=== PATIENT | male | born 1960 | race Caucasian/White ===

== ENCOUNTER 2016-07-13 12:21 | Emergency (ER) | payer OTHER ==
[~2016-07-13] VITALS: Ht 175.3 cm; Wt 81.6 kg
[~2016-07-13 12:21] MED LIST: ALBU8.5H6 IH; DICY20TA3 PO; GABA600T2 PO; LISI10TA2 PO; NAPR550T3 PO; OMEP20TA PO; ONDA8TAB9 PO; PROAIR HFA8.5 GM IH; RANI150C PO; SIMV40TA3 PO; TRAZ50TA15 PO
--- NOTE | 2016-07-13 12:26 | PHYS DOC ---
Past Medical History Past Medical History: High Cholesterol, Hypertension Past Surgical History: Appendectomy, Other Additional Past Surgical Histo: LEFT KNEE SX x2, BICEPT TENDON RUPTURE Alcohol Use: None Drug Use: None Adult General HPI HPI Patient is a 55 year old male presenting to the emergency department via EMS for evaluation of a syncopal episode. Patient was reportedly standing by a desk and then stood up and turned his head and then had a syncopal episode where he passed out for several minutes. Says that his mother called the ambulance. Patient says that he has been having a headache for 2 weeks and he has chronic neck pain years and that he is having tingling in his bilateral hands. Patient is awake and alert and he is oriented 3 although he seems somewhat sleepy. He says the smoke cigarettes but does not drink alcohol or use any drugs. I told patient that we are going to get an EKG CT head and C- spine check labs and urine and treat his pain and nausea. Patient was agreeable with plan. His then came back to the room and he all of a sudden was requesting to be released. I was in another room and patient was not willing to speak to me again before leaving however he let the nurse to His IV and then he walked out of the emergency department under his own power. She didn't did not stay to sign AMA paperwork or anything rather he just walked out on his own. Review of Systems Review of Systems Constitutional: Denies fever or chills [] Eyes: Denies change in visual acuity, redness, or eye pain [] HENT: Denies nasal congestion or sore throat [] Respiratory: Denies cough or shortness of breath [] Cardiovascular: No CP GI: Denies abdominal pain, nausea, vomiting, bloody stools or diarrhea [] : Denies dysuria or hematuria [] Musculoskeletal: Denies back pain or joint pain [] Integument: Denies rash or skin lesions [] Neurologic: + headache,and sensory changes [] Current Medications Current Medications Current Medications Medications (Trade) Dose Ordered Sig/Kevin Start Time Stop Time Status Last Admin Dose Admin Fentanyl Citrate (Fentanyl 2ml Vial) 75 mcg 1X ONCE 07/13/16 12:45 07/13/16 12:46 DC Ondansetron HCl 8 mg 8 mg 1X ONCE 07/13/16 12:45 07/13/16 12:46 DC Sodium Chloride (Iv Sodium Chloride 0.9% 1000ml Bag) 1,000 ml @ 0 mls/hr 1X ONCE 07/13/16 12:45 07/13/16 12:46 DC Allergies Allergies Allergies Coded Allergies Type Severity Reaction Last Updated Verified No Known Drug Allergies 11/25/14 No Physical Exam Physical Exam Constitutional: Well developed, well nourished, no acute distress, non-toxic appearance. [] HENT: Normocephalic, atraumatic, bilateral external ears normal, oropharynx moist, no oral exudates, nose normal. [] Eyes: PERRLA, EOMI, conjunctiva normal, no discharge. [] Neck: C-collar in place and there is diffuse midline and paraspinal C-spine tenderness. Cardiovascular:Heart rate regular rhythm, no murmur [] Lungs & Thorax: Bilateral breath sounds clear to auscultation [] Abdomen: Bowel sounds normal, soft, no tenderness, no masses, no pulsatile masses. [] Skin: Multiple skin lesions noted some of which look like IV drug abuse. Back: No tenderness, no CVA tenderness. [] Extremities: No tenderness, no cyanosis, no clubbing, ROM intact, no edema. [] Neurologic: Alert and oriented X 3, normal motor function, normal sensory function, no focal deficits noted. [] Current Patient Data Vital Signs Vital Signs Date Time Temp Pulse Resp B/P Pulse Ox O2 Delivery O2 Flow Rate FiO2 07/13/16 12:30 98.0 102 15 153/81 98 Room Air 98.0 EKG EKG Normal sinus rhythm with normal axis and no deviation with no ST elevation or depression and normal T waves. Radiology/Procedures Radiology/Procedures [] Course & Med Decision Making Course & Med Decision Making As above patient was going to be evaluated for his syncope headaches and neck pain however he walked out of the emergency department under his own power. Dragon Disclaimer Dragon Disclaimer This electronic medical record was generated, in whole or in part, using a voice recognition dictation system. Departure Departure Impression: Primary Impression: Syncope and collapse Additional Impressions: Closed head injury Cervical spine pain Disposition: AGAINST MEDICAL ADVICE Condition: STABLE Referrals: EVELIA LYMAN MD (PCP) Problem Qualifiers Additional Impressions: Closed head injury Encounter type: initial encounter Qualified Code: S09.90XA - Unspecified injury of head, initial encounter CUBA INMAN DO Jul 13, 2016 12:26
[2016-07-13 12:30] VITALS: BP 153/81
[2016-07-13] MEDS ORDERED: fentaNYL PF VIAL 100 MCG/2 ML VIAL IV ONE (12:45)
[2016-07-13] MEDS ORDERED: ONDANSETRON PF 4 MG/2 ML VIAL. IV ONE (12:45)
[2016-07-13] MEDS ORDERED: IV NORMAL SALINE 1000ML BAG 1,000 ML IV ONE (12:45)
--- NOTE | 2016-07-13 12:45 | EKG ---
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
[2016-07-13 12:50] LABS: BASO # 0.2 x10^3/uL (0.0-0.2); BASO % 1 % (0-3); EOS % 1 % (0-3); HEMATOCRIT 42.5 % (39.0-53.0); HEMOGLOBIN 14.1 g/dL (13.0-17.5); LYMPH # 2.6 x10^3/uL (1.0-4.8); LYMPH % 24 % (24-48); MEAN CORPUSCULAR HEMOGLOBIN 29 pg (25-35); MEAN CORPUSCULAR HGB CONC 33 g/dL (31-37); MEAN CORPUSCULAR VOLUME 87 fL (79-100); MONO % 7 % (0-9); NEUT % 68 % (31-73); PLATELET COUNT 259 x10^3/uL (140-400); RED BLOOD COUNT 4.91 x10^6/uL (4.30-5.70); RED CELL DISTRIBUTION WIDTH 13.3 % (11.5-14.5); WHITE BLOOD COUNT 11.1 x10^3/uL (4.0-11.0)
[2016-07-13 12:54] LABS: PROTHROMBIN TIME PATIENT 12.8 SEC (11.7-14.0)
[2016-07-13 13:29] LABS: CALCIUM 8.9 mg/dL (8.5-10.1); CREATININE 0.8 mg/dL (0.7-1.3); GFR 101.1; POTASSIUM 3.7 mmol/L (3.5-5.1)
[2016-07-13 13:34] LABS: ETHANOL < 10 mg/dL (0-10)
[2016-07-13 13:38] LABS: ALBUMIN 3.9 g/dL (3.4-5.0); ALBUMIN/GLOBULIN RATIO 1.3 (1.0-1.7); TOTAL BILIRUBIN 0.6 mg/dL (0.2-1.0); TOTAL PROTEIN 6.9 g/dL (6.4-8.2)
== END 2016-07-13 12:45 | disposition left against medical advice (07) ==
LOC: ER 12:21
DX: S09.90XA Unspecified injury of head, initial encounter (principal); R55 Syncope and collapse; M54.2 Cervicalgia; Z90.49 Acquired absence of other specified parts of digestive tract; E78.00 Pure hypercholesterolemia, unspecified; I10 Essential (primary) hypertension; G89.29 Other chronic pain; F17.210 Nicotine dependence, cigarettes, uncomplicated; X58.XXXA Exposure to other specified factors, initial encounter; Y93.89 Activity, other specified; Y92.89 Other specified places as the place of occurrence of the external cause; Y99.8 Other external cause status
CPT/HCPCS: 36415; 80053; 80305; 80320; 83690; 83880; 84443; 84484; 85027; 85610; 85730; 93005; 99285; G6038; G0480; 80196

== ENCOUNTER 2017-01-29 15:58 | Emergency (ER) | payer OTHER ==
[~2017-01-29] VITALS: Ht 180.3 cm; Wt 99.8 kg
[~2017-01-29 15:58] MED LIST changes: +NAPR-677 PO; -NAPR550T3 PO; -OMEP20TA PO; +OMEP20TA8 PO
[2017-01-29 16:00] VITALS: BP 166/84
[2017-01-29] MEDS ORDERED: AZIT250T PO (16:19)
[2017-01-29] MEDS ORDERED: PRED50TA PO (16:19)
--- NOTE | 2017-01-29 16:19 | PHYS DOC ---
Past Medical History Past Medical History: High Cholesterol, Hypertension, Other Additional Past Medical Histor: chronic neck and back pain. Past Surgical History: Appendectomy, Other Additional Past Surgical Histo: LEFT KNEE SX x2, BICEPT TENDON RUPTURE, Alcohol Use: None Drug Use: None Adult General Chief Complaint Chief Complaint: Congestion HPI HPI Patient is a 56 year old M who presents with congestion and sinus pressure and a headache. Patient states for the past couple days he's had increasing congestion and sinus pressure and a headache from the sinus pressure. Patient denies any fevers. Patient states he is coughing up a small amount of phlegm. Patient denies any chest pain returns of breath. Patient denies any nausea/ vomiting/diarrhea. Patient has no other complaints. Review of Systems Review of Systems GEN: Denies fevers, chills, sweats HEENT: Sinus congestion CV: Denies chest pain RESP: Denies shortness of air, cough GI: Denies n/v/d NEURO: Denies confusion, dizziness MSK: Denies weakness, joint pain/swelling All other systems were reviewed and found to be within normal limits, except as documented in this note. Allergies Allergies Allergies Coded Allergies Type Severity Reaction Last Updated Verified No Known Drug Allergies 11/25/14 No Physical Exam Physical Exam GEN.: No apparent distress. Alert and oriented. HEENT: Head is normocephalic, atraumatic, TMs clear bilaterally, swollen turbinates bilaterally with purulent nasal discharge and tenderness palpation over the frontal and maxillary sinuses, posterior pharynx nonerythematous and no tonsillar swelling NECK: Supple. LUNGS: CTAB. HEART: RRR, S1, S2 present. Peripheral pulses intact ABDOMEN: Soft, nontender. Positive bowel sounds. EXTREMITIES: Without any cyanosis. NEUROLOGIC: Normal speech, normal tone PSYCHIATRIC: Normal affect, normal mood. SKIN: No ulcerations Current Patient Data Vital Signs Vital Signs Date Time Temp Pulse Resp B/P (MAP) Pulse Ox O2 Delivery O2 Flow Rate FiO2 01/29/17 16:00 97.5 80 20 166/84 (111) 97 Room Air 97.5 EKG EKG [] Radiology/Procedures Radiology/Procedures [] Course & Med Decision Making Course & Med Decision Making Pertinent Labs and Imaging studies reviewed. (See chart for details) ED course: Patient was seen and examined emergency room and based off the physical exam I believe the patient has acute sinusitis. Had a long discussion with the patient regards to treatment for acute sinusitis explained that majority of sinusitis are viral infections and small percentage lower bacterial. Explained the use of steroids and need for antibiotics and the treatment for sinusitis. Offer the patient the option of antibiotics plus steroids or just steroids for treatment. After much discussion the patient is decided to go with antibiotics and steroids. Patient stable for discharge. MDM: After reviewing the chart, CC/HPI/PMH, physical exam, I do not believe the patient has an acute intracranial process or severe bacterial infection warranting further workup and/or admission at this time. I believe the patient has acute sinusitis and will treat as such. Patient is stable for discharge. Additional verbal discharge instructions were provided to the patient and that if symptoms get worse or any new symptoms arise that are worrisome to the patient he is to return to the emergency room immediately [] Dragon Disclaimer Dragon Disclaimer This electronic medical record was generated, in whole or in part, using a voice recognition dictation system. Departure Departure Impression: Primary Impression: Acute sinusitis Disposition: 01 HOME, SELF-CARE Condition: IMPROVED Referrals: Rush LYMAN MD (PCP) Patient Instructions: Sinusitis Additional Instructions: Please follow-up with your family physician next one to 2 days and return if symptoms increase Scripts Azithromycin (ZITHROMAX) 250 Mg Tablet 1 PKG PO UD, #6 TAB Prov: NIMA SANTANA DO 01/29/17 Prednisone (PREDNISONE) 50 Mg Tablet 1 TAB PO DAILY, #5 TAB Prov: NIMA SANTANA DO 01/29/17 NIMA SANTANA DO Jan 29, 2017 16:19
== END 2017-01-29 16:33 | disposition home or self-care (01) ==
LOC: ER 15:58
DX: J01.10 Acute frontal sinusitis, unspecified (principal); J01.00 Acute maxillary sinusitis, unspecified; E78.00 Pure hypercholesterolemia, unspecified; I10 Essential (primary) hypertension; G89.29 Other chronic pain
CPT/HCPCS: 99283